=== PATIENT | female | born 1965 | race Caucasian/White ===

== ENCOUNTER 2017-12-15 18:15 | Inpatient (IN) | payer OTHER ==
[~2017-12-15] VITALS: Ht 165.1 cm; Wt 68.5 kg
[~2017-12-15 18:15] MED LIST: CEPHALEXIN500 M3 PO; VALACYCLOVIR1000 MG PO
[2017-12-15 19:53] LABS: ABSOLUTE BASOPHIL COUNT 0 /CUMM (0.0-0.2); ABSOLUTE EOSINOPHIL COUNT 0.1 /CUMM (0.0-0.7); ABSOLUTE GRANULOCYTE CT 3.7 /CUMM (1.4-6.5); ABSOLUTE LYMPH COUNT 1.7 /CUMM (1.2-3.4); ABSOLUTE MONOCYTE COUNT 0.6 /CUMM (0.10-0.60); BASOPHIL % 0.4 % (0.0-2.0); EOSINOPHIL % 2.1 % (0-5); HEMATOCRIT 38.6 % (37-47); MEAN CORPUSCULAR HGB 31.6 PG (27.0-31.0); MEAN CORPUSCULAR VOLUME 93.2 FL (81.0-99.0); MEAN PLATELET VOLUME 7.6 FL (7.4-10.4); PLATELET COUNT 353 /CUMM (130-400); RBC DISTRIBUTION WIDTH 13.2 % (11.5-14.5); RED BLOOD CELL CT 4.14 /CUMM (4.20-5.40); WHITE BLOOD CELL COUNT 6.1 /CUMM (4.8-10.8)
--- NOTE | 2017-12-15 20:03 | History & Physical ---
Wilder Baxter 12/15/172002: General Information and HPI MD Statement: I have seen and personally examined HALLIE JARRELL and documented this H&P. The patient is a 51 year old F who presented with a patient stated chief complaint of [shingles]. Source of Information: patient Exam Limitations: no limitations History of Present Illness: 51-year-old female with no prior medical history previously seen the day prior to admission for a new shingles outbreak returns with worsening symptoms. The patient first noticed a tingling above her left eyebrow just over 1 week ago on Friday, and then on Friday evening she noticed spots above her left eye. The next day, be seen at an urgent care clinic the , she went to an urgent care clinic and was given Valtrex, with a referral to Dr. Mendoza her new food expeditor who reportedly told her eye was okay. She went again to the urgent care clinic on Friday the with complaints of a swollen eye and was given cephalexin for cellulitis of the forehead. She came to the [place] emergency department on Friday the with worsening symptoms and was evaluated and sent home with instructions to return if symptoms worsen. Today, the patient reports that her lesions have increased in number and distribution, with increased swelling and redness beneath the right eye as well. She denies pain to her left eye, visual changes, fever, chills, lightheadedness or dizziness, nausea/vomiting, chest pain or shortness of breath. The patient has no prior history of shingles, has never received a shingles vaccine, assume she had chickenpox as a child, does have contacts with known history of shingles, but nobody with an active outbreak she knows about. The patient does not have a primary care provider, and takes an assortment of supplements for health maintenance. Allergies/Medications Allergies: Coded Allergies: Iodine and Iodide Containing Produc (Intermediate, RASH 12/15/17) shellfish derived (Intermediate, RASH 12/15/17) Home Med list Cephalexin 500 MG CAPSULE 1 TAB PO Q8H INFECTION (Reported) Valacyclovir HCl (Valacyclovir) 1,000 MG TABLET 1 TAB PO TID SHINGLES ( Reported) Compliance With Home Meds: GOOD Past History Travel History Traveled to [place] past 21 day No Medical History Neurological: SHINGLES EENT: NONE Cardiovascular: NONE Respiratory: NONE Gastrointestinal: NONE Hepatic: NONE Renal: NONE Musculoskeletal: NONE Psychiatric: NONE Endocrine: NONE Cancer(s): cervical cancer Surgical History Surgical History: none Past Family/Social History Psychosocial History ETOH Use: occasional use Illicit Drug Use: marijuana Review of Systems Review of Systems Constitutional: Denies: chills, diaphoresis, fever, weakness, unexplained weight loss. EENTM: Denies: blurred vision, double vision, eye pain, eye drainage, eye tearing, ear discharge, ear pain, hearing changes, nasal congestion, nasal pain. Cardiovascular: Denies: see HPI, palpitations, peripheral edema. Respiratory: Denies: cough, short of breath, wheezing. GI: Denies: abdominal pain, diarrhea, nausea, vomiting. Genitourinary: Denies: frequency, hematuria, hesitation, pain, urgency. Exam & Diagnostic Data Last 24 Hrs of Vital Signs/I&O Vital Signs Date Time Temp Pulse Resp B/P B/P Pulse O2 O2 Flow FiO2 Mean Ox Delivery Rate 12/16 0225 80 158/98 12/15 2259 98.1 85 16 188/98 100 Room Air 12/15 2120 98.3 80 18 170/80 99 Room Air 12/15 1838 98.1 84 16 163/90 98 Room Air Room Air Intake & Output 12/16 0800 12/16 0000 12/15 1600 Intake Total 120 Output Total Balance 120 Intake, Oral 120 Patient 68.492 kg Weight Weight Reported by Patient Measurement Method Physical Exam General Appearance Alert, Oriented X3, Cooperative, No Acute Distress Skin Red lesions on the patient's left brow, Mild swelling inferior to Right eye HEENT Atraumatic, Mucous Membr. moist/pink Cardiovascular Regular Rate, Normal S1, Normal S2 Lungs Clear to Auscultation, Normal Air Movement Abdomen Normal Bowel Sounds, Soft, No Tenderness Extremities No Clubbing, No Cyanosis, No Edema Last 24 Hrs of Labs/David: Laboratory Tests 12/15/172222: Lactic Acid Cancelled 12/15/171939: Anion Gap 13, Estimated GFR > 60, BUN/Creatinine Ratio 20.0, Glucose 96, Lactic Acid 0.9, Calcium 9.5, Total Bilirubin 0.4, AST 22, ALT 27, Alkaline Phosphatase 56, Total Protein 9.7 H, Albumin 4.8, Globulin 4.9 H, Albumin/Globulin Ratio 1.0 L, CBC w Diff NO MAN DIFF REQ, RBC 4.14 L, MCV 93.2, MCH 31.6 H, MCHC 34.0, RDW 13.2, MPV 7.6, Gran % 61.0, Lymphocytes % 27.5, Monocytes % 9.0, Eosinophils % 2.1, Basophils % 0.4, Absolute Granulocytes 3.7, Absolute Lymphocytes 1.7, Absolute Monocytes 0.6, Absolute Eosinophils 0.1, Absolute Basophils 0 Microbiology 12/15 1954 BLOOD: Blood Culture - RECD 12/15 1934 BLOOD: Blood Culture - RECD Assessment/Plan Assessment: 51-year-old female with no past medical history presents with outbreak of shingles on the left forehead and brow and cellulitis surrounding the right eye. Problems: 1. Herpes zoster 2. Facial cellulitis Plan: Full code As Ranked By This Provider Problem List: 1. Herpes zoster 2. Cellulitis Core Measures/Misc (12/08) Acute Coronary Syndrome ACS Diagnosis: No Congestive Heart Failure Congestive Heart Failure Diagnosis No Cerebrovascular Accident CVA/TIA Diagnosis: No VTE (View Protocol) VTE Risk Factors Age>40 No Mechanical VTE Prophylaxis d/t N/A MechProphylax Ordered No VTE Pharm Prophylaxis d/t NA PharmProphylax ordered Sepsis (View protocol) Sepsis Present: No If YES complete Sepsis Event Note If YES complete Sepsis Event Note Darlin Hutchins MD 12/15/172040: Core Measures/Misc (12/08) Sepsis (View protocol) If YES complete Sepsis Event Note If YES complete Sepsis Event Note Resident Review Statement Resident Statement: examined this patient, discussed with corporate legal intern, agreed with corporate legal intern, reviewed EMR data (avail), amended to note Other Findings: Patient is a 51-year-old female with past medical history of cervical cancer, recently diagnosed with herpes zoster and started on a course of Valtrex, presented to the ED one day prior for evaluation of left eye pain and swelling now presents with chief complaint of facial swelling and rash. Patient reports that she started noticing a rash on Friday (one week prior) which started to itch on Friday in the evening. Patient went to [place] walk-in clinic on 12/11 and was diagnosed with shingles and started on Valtrex. She was told to follow up with an food expeditor. She was evaluated by on 11/11 and had a fluoroscein slit lamp examination which was negative for involvement of the eye. Patient on 11/12 returned today walk-in clinic due to eye swelling and was diagnosed with facial cellulitis and started on cephalexin 500 mg every 8 hours which she took her first dose in the afternoon on 11/12. Patient presented to the [place] ED one day prior due to more swelling and had reevaluation of her eyes with the slit lamp which was negative. Patient was sent home and instructed to continue taking Valtrex and cephalexin. Patient is returning today due to spread of the rash from the left side to the right side along with increased erythema and periorbital swelling. Patient denies any pain , pruritus, fever, chills, nausea/vomiting. Denies any eye tearing, discharge, visual changes, headaches, confusion, neck pain. Denies chest pain, palpitations, shortness of breath, dysuria/hematuria, constipation/diarrhea. Past medical history: As above Past surgical history: Hysterectomy Social history: Occasional alcohol use and marijuana, denies any recent sick contacts Medications: CoQ10, fish oil, apple cider vinegar, cinnamon, tart suarez juice, turmeric with cumin, magnesium powder Allergies: Iodine contrast, shellfish On admission: Vitals: MAXIMUM TEMPERATURE 98.1, heart rate 84, respiration rate 16, blood pressure 163/90, saturating at 98% on room air Labs: CBC and CMP within normal limits Imaging:none Patient in the ED received IV acyclovir 700 mg every 8 hours and cefazolin 1 g every 8 hours. Patient is a 51-year-old female with past medical history significant for recent diagnosis of shingles presenting with worsening of her shingles concerning for disseminated disease. Patient is otherwise stable with no focal neurological findings and is immunocompetent. Patient in the ED was started on IV acyclovir and IV cefazolin first secondary bacterial facial cellulitis. Problems: 1. Shingles 2. Secondary facial cellulitis 3. Uncontrolled hypertension Plan: Admit to [facility] Contact and airborne precautions Continue IV acyclovir 700 mg every 8 hours Continue IV cefazolin 1 g every 8 hours Continue to monitor, if there is any involvement of the nose or eyes please contact ophthalmology immediately for reevaluation If patient does not improve consider ID consult in the a.m. Continue to monitor vitals Will hold home medications at this time- patient reports that she has stopped taking these supplements since starting the antiviral and antibiotic therapy. Patient's blood pressure on admission remained elevated, likely due to anxiety however we will treat with a one-time dose of amlodipine. Continue to monitor and adjust as needed. DVT prophylaxis: Alps, heparin subcutaneous Code: Full code Diet: Heart healthy Demetrio HENNING,Terence 12/16/17 0415: Core Measures/Misc (12/08) Sepsis (View protocol) If YES complete Sepsis Event Note If YES complete Sepsis Event Note Attending MD Review Statement Attending Statement Attending MD Statement: examined this patient, discuss w/resident/PA/MODEL MAKER SCALE, agreed w/resident/PA/MODEL MAKER SCALE Attending Assessment/Plan: Patient is seen and examined independently by me. Care plan discussed with medical videographer and/or resident. I agree with the physical exam findings and plan of care as outlined above with the following changes and additions. 51 yo F with history of cervical cancer s/p hysterectomy, presented with left forehead vesicular rash with surrounding erythema, edema with periorbital involvement. Patient noticed vesicular rash on 12/10. She went to [facility] walk -in on12/11, diagnosed with herpes zoster and started on valacyclovir 1 g TID. She went to see Opthal (Dr. Castrejon) on 12/12 had fluorescein slit lamp exam with no eye involvement. She has increased left facial swelling on 12/13, went to walk -in again and started on Keflex 500 mg TID. She came to ED with increasing facial edema on 12/14 and advise to continue current treatment and to return when edema spread across to the right face. Today, she has increasing edema with spreading to right periorbital area. She denies fever, chills or pain from lesions. In the ED, she is afebrile. WBC 6.1 She is started on acyclovir 700 mg IV in the ED. She is admitted as inpatient to [facility] for herpes zoster and facial cellulitis. Check blood cultures. Start acyclovir IV and cefazolin IV. Consider Ophthalmology consult if worsen. Signed: Terence Atkinson MD FACP
--- NOTE | 2017-12-15 21:20 | ED GENERAL ADULT ---
History of Present Illness General Chief Complaint: General Adult Stated Complaint: SHINGLES Source: patient Exam Limitations: no limitations Vital Signs & Intake/Output Vital Signs & Intake/Output Vital Signs Date Time Temp Pulse Resp B/P B/P Pulse O2 O2 Flow FiO2 Mean Ox Delivery Rate 12/16 0225 80 158/98 12/15 2259 98.1 85 16 188/98 100 Room Air 12/15 2120 98.3 80 18 170/80 99 Room Air 12/15 1838 98.1 84 16 163/90 98 Room Air Room Air ED Intake and Output 12/16 0000 12/15 1200 Intake Total 0 Output Total Balance 0 Intake, Oral 0 Patient 151 lb Weight Weight Reported by Patient Measurement Method Allergies Coded Allergies: Iodine and Iodide Containing Produc (Intermediate, RASH 12/15/17) shellfish derived (Intermediate, RASH 12/15/17) Reconcile Medications Cephalexin 500 MG CAPSULE 1 TAB PO Q8H INFECTION (Reported) Valacyclovir HCl (Valacyclovir) 1,000 MG TABLET 1 TAB PO TID SHINGLES ( Reported) Triage Note: SHINGLES AND CELLULITIS TO FACE. WORSE FROM YESTERDAY Triage Nurses Notes Reviewed? yes HPI: 51-year-old woman recently diagnosed with herpes zoster and facial cellulitis treated with Valtrex/Keflex seen in the ED yesterday for evaluation of facial pain and swelling. She was subsequently discharged home with instruction to follow up with her primary care provider or to return should her swelling spread across her face or worsen. Patient's rash now involves the right side of her face which worried the patient for which she came to the [place] ED. Presently she feels unchanged from yesterday and denies any fever or chills. Additionally she denies any blurred vision or eye pain. (Terence Valdez MD) Past History Travel History Traveled to [place] past 21 day No Medical History Any Pertinent Medical History? see below for history Neurological: SHINGLES EENT: NONE Cardiovascular: NONE Respiratory: NONE Gastrointestinal: NONE Hepatic: NONE Renal: NONE Musculoskeletal: NONE Psychiatric: NONE Endocrine: NONE Cancer(s): cervical cancer Surgical History Surgical History: none Psychosocial History What is your primary language Frisian Tobacco Use: Quit >30 days ago ETOH Use: occasional use Illicit Drug Use: marijuana Family History Hx Contributory? No (Terence Valdez MD) Review of Systems Review of Systems Constitutional: Reports: see HPI. (Terence Valdez MD) Physical Exam Physical Exam General Appearance: well developed/nourished, no apparent distress, alert, awake , comfortable Comments: General - well developed, well nourished middle aged woman in no acute distress HEENT -diffuse erythematous rash on the left face in the dermatome of the V1 V2 cranial nerve distribution with vesicles and surrounding swelling without any obvious drainage without eye or nasal involvement but now involving the right lower eye lid, fluoriscene dye exam of eye demonstrates no dendrites, pupils equal round reactive to light and accommodation, extraocular muscles intact Neck- Supple, no JVD/HJR, no bruits, trachea midline, thyroid normal Cardio - S1, S2 w/o murmurs/gallops/rubs; regular rate and rhythm Resp - Clear to auscultation bilaterally GI - Soft, nontender, nondistended, bowel sounds present Neuro - Awake and alert, CN II - XII grossly intact Extremities - No edema, pulses intact Core Measures ACS in differential dx? No CVA/TIA Diagnosis: No Sepsis Present: No Sepsis Focused Exam Completed? No (Terence Valdez MD) Progress Differential Diagnoses I considered the following diagnoses in my evaluation of the patient: Herpes zoster, cellulitis, disseminated herpes zoster, zoster ophthalmicus Plan of Care: Orders Procedure Date/time Status Heart Healthy Diet 12/16 B Active CBC WITHOUT DIFFERENTIAL 12/16 06 Active BASIC ELECTROLYTES PLUS BUN&CR 12/16 06 Active Saline Lock 12/16 0011 Active Pathway - chart 12/16 0011 Active House Staff 12/16 0011 Active Code Status 12/16 0011 Active VTE Mechanical Prophylaxis 12/16 UNK Active Vital Signs 12/16 UNK Complete Intake & Output 12/16 UNK Active Activity/Ambulation 12/16 UNK Active Weight 12/15 2233 Complete Vital Signs 12/15 2233 Active Teach/Educate 12/15 2233 Active Pain Treatment and Response 12/15 2233 Active Nutritional Intake, Monitor 12/15 2233 Active Isolation 12/15 2233 Active Intake & Output 12/15 2233 Active Patient Care Conference 12/15 2233 Active Activity/Ambulation 12/15 2233 Complete Admit to inpatient 12/15 1926 Active Isolation 12/15 1926 Complete Isolation 12/15 1926 Active Patient Data 12/16 1923 Active ED Holding Orders 12/15 1922 Active Patient Data 12/15 1922 Active Vital Signs 12/15 1922 Active BLOOD CULTURE 12/15 1922 Active LACTIC ACID 12/15 1922 Complete COMPREHENSIVE METABOLIC PANEL 12/15 1922 Complete CBC WITHOUT DIFFERENTIAL 12/15 1922 Complete Code Status 12/15 1922 Complete Intake & Output 12/15 185 Complete Current Medications Sig/Jeremie Start time Last Medication Dose Stop Time Status Admin Heparin Sodium 5,000 UNIT Q8 12/16 0600 AC (Porcine) Acyclovir 700 MG Q8H 12/16 0500 AC (Zovirax) Dextrose/Water 250 ML (D5W) Acetaminophen 650 MG Q6P PRN 12/16 0015 AC (Tylenol) Cefazolin Sodium 1,000 MG IQ8 12/16 0000 AC 12/16 (Kefzol-Ancef Inj) 0021 Laboratory Tests 12/15/172222: Lactic Acid Cancelled 12/15/171939: Anion Gap 13, Estimated GFR > 60, BUN/Creatinine Ratio 20.0, Glucose 96, Lactic Acid 0.9, Calcium 9.5, Total Bilirubin 0.4, AST 22, ALT 27, Alkaline Phosphatase 56, Total Protein 9.7 H, Albumin 4.8, Globulin 4.9 H, Albumin/Globulin Ratio 1.0 L, CBC w Diff NO MAN DIFF REQ, RBC 4.14 L, MCV 93.2, MCH 31.6 H, MCHC 34.0, RDW 13.2, MPV 7.6, Gran % 61.0, Lymphocytes % 27.5, Monocytes % 9.0, Eosinophils % 2.1, Basophils % 0.4, Absolute Granulocytes 3.7, Absolute Lymphocytes 1.7, Absolute Monocytes 0.6, Absolute Eosinophils 0.1, Absolute Basophils 0 Microbiology 12/15 1954 BLOOD: Blood Culture - RECD 12/15 1934 BLOOD: Blood Culture - RECD Initial ED EKG: none Comments: Patient with herpes zoster and cellulitis involving the left face now involving the right eye suggesting disseminated herpes zoster and impending zoster ophthalmicus. Currently she has no blurred vision or eye pain. Vital signs today remain within normal limits. Repeat labs today remain within normal limits. Given patient's extension of her rash across her face is suggest that multiple dermatomes are involved patient should be treated with intravenous antivirals/antibiotics. (José Miguel HENNING,Terence) Departure Departure Disposition: STILL A PATIENT Condition: Stable Clinical Impression Primary Impression: Herpes zoster Referrals: Patient Has No Primary Care Dr (PCP/Family) Departure Forms: Customer Survey General Discharge Information (José Miguel HENNING,Terence) PA/ASSISTANT MEN'S SOCCER COACH Co-Sign Statement Statement: ED Attending supervision documentation- x I saw and evaluated the patient. I have also reviewed all the pertinent lab results and diagnostic results. I agree with the findings and the plan of care as documented in the PA's/ASSISTANT MEN'S SOCCER COACH's documentation. Patient was seen and examined yesterday by myself and Dr. Valdez, she presents today with progression of symptoms that have crossed dermatomes and have crossed TSI the face. Failed outpatient antibiotics and antivirals. Admit patient for further treatment. [] I have reviewed the ED Record and agree with the PA's/ASSISTANT MEN'S SOCCER COACH's documentation. [] Additions or exceptions (if any) to the PAs/ASSISTANT MEN'S SOCCER COACH's note and plan are summarized below: [] (Seamus HENNING,Saman) Critical Care Note Critical Care Note Critical Care Time: non-applicable (José Miguel HENNING,Terence)
[2017-12-15 22:59] VITALS: BP 188/98
[2017-12-16 02:00] VITALS: BP 158/98
[2017-12-16 04:00] VITALS: BP 148/94
[2017-12-16 06:00] VITALS: BP 148/90
[2017-12-16 07:10] VITALS: BP 144/88
--- NOTE | 2017-12-16 07:47 | History & Physical ---
General Information and HPI Source of Information: patient Exam Limitations: no limitations Allergies/Medications Allergies: Coded Allergies: Iodine and Iodide Containing Produc (Intermediate, RASH 12/15/17) shellfish derived (Intermediate, RASH 12/15/17) Home Med list Cephalexin 500 MG CAPSULE 1 TAB PO Q8H INFECTION (Reported) Valacyclovir HCl (Valacyclovir) 1,000 MG TABLET 1 TAB PO TID SHINGLES ( Reported) Compliance With Home Meds: GOOD Past History Travel History Traveled to [place] past 21 day No Medical History Blood Transfusion Hx: No Neurological: SHINGLES EENT: NONE Cardiovascular: NONE Respiratory: NONE Gastrointestinal: NONE Hepatic: NONE Renal: NONE Musculoskeletal: NONE Psychiatric: NONE Endocrine: NONE Cancer(s): cervical cancer APPLICATION SUPPORT ANALYST/Reproductive: HYSTERECTOMY Isolation History: Airborne Surgical History Surgical History: none Past Family/Social History Psychosocial History Where do you live? Home Services at Home: None Smoking Status: Former Smoker ETOH Use: occasional use Illicit Drug Use: marijuana Core Measures/Misc (12/08) Cerebrovascular Accident CVA/TIA Diagnosis: No VTE (View Protocol) VTE Risk Factors Age>40 Sepsis (View protocol) Sepsis Present: No If YES complete Sepsis Event Note If YES complete Sepsis Event Note
--- NOTE | 2017-12-16 07:48 | PN- Housestaff ---
Ophelia Montano 12/16/17 0748: Subjective Follow-up For: Herpes zoster ophthalmicus Complaints: no complaints Subjective: Patient seen lying in bed. She is very anxious and complains of pain in the lower end of the sternum and the epigastric region. She does not complain of her left eye being photosensitive. Does not complain of itching the rash. Review of Systems Constitutional: Reports: see HPI. Objective Last 24 Hrs of Vital Signs/I&O Vital Signs Date Time Temp Pulse Resp B/P B/P Pulse O2 O2 Flow FiO2 Mean Ox Delivery Rate 12/16 1422 97.5 85 18 139/80 100 Room Air 12/16 0710 72 144/88 97 Room Air 12/16 0600 97.6 78 18 148/90 97 Room Air 12/16 0400 80 148/94 12/16 0225 80 158/98 12/16 0200 80 158/98 12/15 2259 98.1 85 16 188/98 100 Room Air 12/15 2120 98.3 80 18 170/80 99 Room Air 12/15 1838 98.1 84 16 163/90 98 Room Air Room Air Intake & Output 12/16 1600 12/16 0800 12/16 0000 Intake Total 650 390 120 Output Total 450 Balance 200 390 120 Intake, IV 270 Intake, Oral 650 120 120 Output, Urine 450 Patient 151 lb Weight Weight Reported by Patient Measurement Method Physical Exam General Appearance: Alert, Oriented X3, Cooperative, Mild Distress Skin: vesicular rash in on left ana cristina-orbital region, swelling around left eye, left eye tearing but no redness Skin Temp/Moisture Exam: Cool/Dry Sepsis Skin Exam (color): Normal for Ethnicity HEENT: Atraumatic, PERRLA, EOMI, Mucous Membr. moist/pink Neck: Supple, No LAD Cardiovascular: Regular Rate, Normal S1, Normal S2, No Murmurs Lungs: Clear to Auscultation, Normal Air Movement Abdomen: Normal Bowel Sounds, Soft, No Tenderness, No Hepatospenomegaly, No Masses Neurological: Normal Speech, Strength at 5/5 X4 Ext, Normal Tone, Sensation Intact, Cranial Nerves 3-12 NL, Reflexes 2+ Extremities: No Clubbing, No Cyanosis, No Edema, Normal Pulses, No Tenderness/ Swelling Vascular: Normal Pulses, Pulses Symmetrical Current Medications: Current Medications Sig/Jeremie Start time Last Medication Dose Route Stop Time Status Admin Acetaminophen 650 MG Q6P PRN 12/16 0015 DCD PO Acyclovir 700 MG Q8H 12/16 0500 DCD 12/16 Dextrose/Water 250 ML IV 1321 Acyclovir 700 MG Q8H 12/15 1930 DC 12/15 Dextrose/Water 250 ML IV 205 Amlodipine Besylate 5 MG ONCE ONE 12/15 2345 DC 12/16 PO 12/15 2346 0225 Cefazolin Sodium 1,000 MG IQ8 12/16 0000 DCD 12/16 IV 0759 Heparin Sodium 5,000 UNIT Q8 12/16 0600 DCD 12/16 (Porcine) SC 1321 Last 24 Hrs of Lab/David Results Last 24 Hrs of Labs/Mics: Laboratory Tests 12/16/17 0645: Anion Gap 12, Estimated GFR > 60, BUN/Creatinine Ratio 30.0 H, Troponin I < 0.01, CBC w Diff NO MAN DIFF REQ, RBC 4.01 L, MCV 93.2, MCH 31.8 H, MCHC 34.1, RDW 13.0, MPV 8.0, Gran % 58.6, Lymphocytes % 28.5, Monocytes % 9.7 H, Eosinophils % 2.8, Basophils % 0.4, Absolute Granulocytes 3.2, Absolute Lymphocytes 1.6, Absolute Monocytes 0.5, Absolute Eosinophils 0.2, Absolute Basophils 0 12/15/172222: Lactic Acid Cancelled 12/15/171939: Anion Gap 13, Estimated GFR > 60, BUN/Creatinine Ratio 20.0, Glucose 96, Lactic Acid 0.9, Calcium 9.5, Total Bilirubin 0.4, AST 22, ALT 27, Alkaline Phosphatase 56, Total Protein 9.7 H, Albumin 4.8, Globulin 4.9 H, Albumin/Globulin Ratio 1.0 L, CBC w Diff NO MAN DIFF REQ, RBC 4.14 L, MCV 93.2, MCH 31.6 H, MCHC 34.0, RDW 13.2, MPV 7.6, Gran % 61.0, Lymphocytes % 27.5, Monocytes % 9.0, Eosinophils % 2.1, Basophils % 0.4, Absolute Granulocytes 3.7, Absolute Lymphocytes 1.7, Absolute Monocytes 0.6, Absolute Eosinophils 0.1, Absolute Basophils 0 Microbiology 12/15 1954 BLOOD: Blood Culture - RES 12/15 1934 BLOOD: Blood Culture - RES Assessment/Plan Assessment: 51-year-old female with no significant past medical history, presented to the emergency department with a chief complaint of a vesicular rash in the left periorbital area. The rash started with tingly sensation in the left periorbital area, 1 week back. She went to an urgent care who gave her a prescription of Valtrex. She saw an derrick barge operator who said that her eye looked fine. She again went to urgent care the next day and was given cephalexin for cellulitis of the face. One day after that she presented to the [facility] emergency department for worsening of her rash. 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 establish care with primary care physician and follow-up within 1 week after discharge. Problem List: 1. Cellulitis 2. Herpes zoster Pain Ratin Pain Location: None Pain Goal: Remain pain free Pain Plan: Follow pain pathway Tomorrow's Labs & Rationales: Not required Ora Garcia 12/16/17 1049: Attending MD Review Statement Attending Statement Attending MD Statement: examined this patient, discuss w/resident/PA/INDUSTRIAL SERVICES WORKER, agreed w/resident/PA/INDUSTRIAL SERVICES WORKER, discussed with family, reviewed EMR data (avail), discussed with nursing, discussed with case mgmt, reviewed images, amended to note Attending Assessment/Plan: 51 yo F with history of cervical cancer s/p hysterectomy, presented with left forehead vesicular rash with surrounding erythema, edema with periorbital involvement. No new complaints. Area of redness with small pustules and edema noted on forehead and upper eyelid. She is admitted as inpatient to [facility] for herpes zoster and facial cellulitis. Follow blood cultures. C/w acyclovir IV and cefazolin IV. Obtain ID consult. Consider Ophthalmology consult if worsen. GI/DVT prophyalxis Referral to PCP at discharge
[2017-12-16 08:29] LABS: ABSOLUTE BASOPHIL COUNT 0 /CUMM (0.0-0.2); ABSOLUTE EOSINOPHIL COUNT 0.2 /CUMM (0.0-0.7); ABSOLUTE GRANULOCYTE CT 3.2 /CUMM (1.4-6.5); ABSOLUTE LYMPH COUNT 1.6 /CUMM (1.2-3.4); ABSOLUTE MONOCYTE COUNT 0.5 /CUMM (0.10-0.60); BASOPHIL % 0.4 % (0.0-2.0); EOSINOPHIL % 2.8 % (0-5); GRANULOCYTE % 58.6 % (42.2-75.2); HEMATOCRIT 37.4 % (37-47); MEAN CORPUSCULAR HGB 31.8 PG (27.0-31.0); MEAN CORPUSCULAR HGB CONC 34.1 G/DL (33.0-37.0); MEAN CORPUSCULAR VOLUME 93.2 FL (81.0-99.0); PLATELET COUNT 301 /CUMM (130-400); RED BLOOD CELL CT 4.01 /CUMM (4.20-5.40); WHITE BLOOD CELL COUNT 5.4 /CUMM (4.8-10.8)
--- NOTE | 2017-12-16 14:08 | Cons- Infect Disease ---
General Information and HPI Consulting Request Date of Consult: 12/16/17 Requested By: Ora Garcia MD Reason for Consult: Herpes zoster ophthalmicus Source of Information: patient History of Present Illness: This is a 51-year-old woman with no past medical history begun on Valtrex 4 days prior to admission after developing vesicles in the left periorbital area 3 days after developing a tingling sensation over her left forehead, with the addition of Keflex 2 days prior to admission for what was felt to be a cellulitis, admitted on December 15 with increasing swelling in the left periorbital area and, to a lesser extent, the right periorbital area, with no eye pain, fevers or chills. On admission she was afebrile. Laboratory data revealed a white blood cell of 6000, BUN/creatinine 12 and 0.6, with normal liver enzymes. She was begun on IV Acyclovir and Cefazolin. She has remained afebrile overnight and notes improvement in her swelling today. Allergies/Medications Allergies: Coded Allergies: Iodine and Iodide Containing Produc (Intermediate, RASH 12/15/17) shellfish derived (Intermediate, RASH 12/15/17) Home Med List: Cephalexin 500 MG CAPSULE 1 TAB PO Q8H INFECTION (Reported) Valacyclovir HCl (Valacyclovir) 1,000 MG TABLET 1 TAB PO TID SHINGLES ( Reported) Past History Travel History Traveled to [place] past 21 day No Medical History Blood Transfusion Hx: No EENT: NONE Cardiovascular: NONE Respiratory: NONE Gastrointestinal: NONE Hepatic: NONE Renal: NONE Musculoskeletal: NONE Psychiatric: NONE Endocrine: NONE Cancer(s): cervical cancer ADMINISTRATIVE STAFF SUPERVISOR/Reproductive: HYSTERECTOMY Surgical History Surgical History: none Psychosocial History Where Do You Live? Home Services at Home: None Smoking Status: Former Smoker ETOH Use: occasional use Illicit Drug Use: marijuana Review of Systems Review of Systems All Other Systems: Reviewed and Negative Exam & Diagnostic Data Last 24 Hrs of Vital Signs/I&O Vital Signs Date Time Temp Pulse Resp B/P B/P Pulse O2 O2 Flow FiO2 Mean Ox Delivery Rate 12/16 0710 72 144/88 97 Room Air 12/16 0600 97.6 78 18 148/90 97 Room Air 12/16 0400 80 148/94 12/16 0225 80 158/98 12/16 0200 80 158/98 12/15 2259 98.1 85 16 188/98 100 Room Air 12/15 2120 98.3 80 18 170/80 99 Room Air 12/15 1838 98.1 84 16 163/90 98 Room Air Room Air Intake & Output 12/16 1600 12/16 0800 12/16 0000 Intake Total 390 120 Output Total Balance 390 120 Intake, IV 270 Intake, Oral 120 120 Patient 151 lb Weight Weight Reported by Patient Measurement Method Physical Exam Other Physical Findings: She is awake and alert, anxious, but in no acute distress. She is afebrile. Skin reveals vesicles in the left supraorbital area, with mild left periorbital swelling, without any erythema or tenderness; mild swelling in the right maxillary area, with no vesicles or significant erythema or tenderness. HEENT exam left periorbital findings as noted above. Neck is supple with no adenopathy. Lungs are clear. Heart regular rhythm with no murmur. Abdomen is soft, nontender with positive bowel sounds. Back no CVA tenderness. Extremities no cyanosis, clubbing or edema. Neuro is without focality. Last 24 Hours of Lab Results: Laboratory Tests 12/16 12/15 0645 2223 Chemistry Sodium (137 - 145 mmol/L) 140 Potassium (3.5 - 5.1 mmol/L) 4.7 Chloride (98 - 107 mmol/L) 103 Carbon Dioxide (22 - 30 mmol/L) 24 Anion Gap (5 - 16) 12 BUN (7 - 17 mg/dL) 12 Creatinine (0.5 - 1.0 mg/dL) 0.4 L Estimated GFR (>60 ml/min) > 60 BUN/Creatinine Ratio (7 - 25 %) 30.0 H Lactic Acid Cancelled Troponin I (< 0.11 ng/ml) < 0.01 Hematology CBC w Diff NO MAN DIFF REQ WBC (4.8 - 10.8 /CUMM) 5.4 RBC (4.20 - 5.40 /CUMM) 4.01 L Hgb (12.0 - 16.0 G/DL) 12.8 Hct (37 - 47 %) 37.4 MCV (81.0 - 99.0 FL) 93.2 MCH (27.0 - 31.0 PG) 31.8 H MCHC (33.0 - 37.0 G/DL) 34.1 RDW (11.5 - 14.5 %) 13.0 Plt Count (130 - 400 /CUMM) 301 MPV (7.4 - 10.4 FL) 8.0 Gran % (42.2 - 75.2 %) 58.6 Lymphocytes % (20.5 - 51.1 %) 28.5 Monocytes % (1.7 - 9.3 %) 9.7 H Eosinophils % (0 - 5 %) 2.8 Basophils % (0.0 - 2.0 %) 0.4 Absolute Granulocytes (1.4 - 6.5 /CUMM) 3.2 Absolute Lymphocytes (1.2 - 3.4 /CUMM) 1.6 Absolute Monocytes (0.10 - 0.60 /CUMM) 0.5 Absolute Eosinophils (0.0 - 0.7 /CUMM) 0.2 Absolute Basophils (0.0 - 0.2 /CUMM) 0 12/15 194 Chemistry Sodium (137 - 145 mmol/L) 139 Potassium (3.5 - 5.1 mmol/L) 4.1 Chloride (98 - 107 mmol/L) 102 Carbon Dioxide (22 - 30 mmol/L) 24 Anion Gap (5 - 16) 13 BUN (7 - 17 mg/dL) 12 Creatinine (0.5 - 1.0 mg/dL) 0.6 Estimated GFR (>60 ml/min) > 60 BUN/Creatinine Ratio (7 - 25 %) 20.0 Glucose (65 - 99 mg/dL) 96 Lactic Acid (0.7 - 2.1 mmol/L) 0.9 Calcium (8.4 - 10.2 mg/dL) 9.5 Total Bilirubin (0.2 - 1.3 mg/dL) 0.4 AST (14 - 36 U/L) 22 ALT (9 - 52 U/L) 27 Alkaline Phosphatase (<127 U/L) 56 Total Protein (6.3 - 8.2 g/dL) 9.7 H Albumin (3.5 - 5.0 g/dL) 4.8 Globulin (1.9 - 4.2 gm/dL) 4.9 H Albumin/Globulin Ratio (1.1 - 2.2 %) 1.0 L Hematology CBC w Diff NO MAN DIFF REQ WBC (4.8 - 10.8 /CUMM) 6.1 RBC (4.20 - 5.40 /CUMM) 4.14 L Hgb (12.0 - 16.0 G/DL) 13.1 Hct (37 - 47 %) 38.6 MCV (81.0 - 99.0 FL) 93.2 MCH (27.0 - 31.0 PG) 31.6 H MCHC (33.0 - 37.0 G/DL) 34.0 RDW (11.5 - 14.5 %) 13.2 Plt Count (130 - 400 /CUMM) 353 MPV (7.4 - 10.4 FL) 7.6 Gran % (42.2 - 75.2 %) 61.0 Lymphocytes % (20.5 - 51.1 %) 27.5 Monocytes % (1.7 - 9.3 %) 9.0 Eosinophils % (0 - 5 %) 2.1 Basophils % (0.0 - 2.0 %) 0.4 Absolute Granulocytes (1.4 - 6.5 /CUMM) 3.7 Absolute Lymphocytes (1.2 - 3.4 /CUMM) 1.7 Absolute Monocytes (0.10 - 0.60 /CUMM) 0.6 Absolute Eosinophils (0.0 - 0.7 /CUMM) 0.1 Absolute Basophils (0.0 - 0.2 /CUMM) 0 Last 24 Hours of David Results: Blood cultures 2 December 15 negative Assessment/Plan Assessment/Plan Impression: This is a 51-year-old woman with no past medical history treated with Valtrex beginning 4 days prior to admission for Herpes zoster ophthalmicus and Keflex 2 days prior to admission for a presumed bacterial superinfection admitted on December 15 with increasing swelling in the left periorbital area and, to a lesser extent, the right periorbital area, with no eye pain, fevers or chills, found to be afebrile with a normal white blood cell count. Her presentation is consistent with Herpes zoster ophthalmicus. The lesions are confined to the ophthalmic division of the left trigeminal nerve and there is no evidence for dissemination. She has remained afebrile with a normal white blood cell count and has no surrounding erythema or tenderness to suggest a cellulitis , which is reportedly quite rare and occurs in approximately 1% of cases. Suggestion: 1. Discontinue Contact and Airborne isolation and maintain on standard precautions 2. Symptomatic treatment for her left periorbital discomfort 3. Discontinue Cefazolin 4. Discontinue Acyclovir 5. Restart Valtrex 1 gram p.o. 3 times a day and continue for 2 more days Consult Acknowledgment - Thank you for your consult request.
--- NOTE | 2017-12-16 14:21 | Patient Discharge Instructions ---
Discharge Instructions General Discharge Information You were seen/treated for: Herpes zoster, facial cellulitis Watch for these problems: Worsening facial rash, changes in vision, pain in the eye, loss of consciousness , fever, chills: If you have any of these please visit your nearest emergency department Special Instructions: Diet Continue normal diet: Yes Activity Full Activity/No Limits: Yes Acute Coronary Syndrome Inclusion Criteria At DC or during hospital stay patient has or had the following: ACS DIAGNOSIS No Discharge Core Measures Meds if any: Prescribed or Continued at Discharge Meds if any: NOT Prescribed or Continued at Discharge Congestive Heart Failure Inclusion Criteria At DC or during hospital stay patient has or had the following: CHF DIAGNOSIS No Discharge Core Measures Meds if any: Prescribed or Continued at Discharge Meds if any: NOT Prescribed or Continued at Discharge Cerebrovascular accident Inclusion Criteria At DC or during hospital stay patient has or had the following: CVA/TIA Diagnosis No Discharge Core Measures Meds if any: Prescribed or Continued at Discharge Meds if any: NOT Prescribed or Continued at Discharge Venous thromboembolism Inclusion Criteria VTE Diagnosis No Discharge Core Measures - Per Current guidelines, there needs to be overlap - treatment for the first 5 days of Warfarin therapy. - If discharged on Warfarin prior to 5 days of - overlap therapy, the patient will need to be - assessed for post discharge needs including - *Post discharge parental anticoagulation - *Warfarin and/or parental anticoagulation education - *Follow up date to check INR post discharge Meds if any: Prescribed or Continued at Discharge Note: Overlap Therapy is Warfarin and Anticoagulant Meds if any: NOT Prescribed or Continued at Discharge
[2017-12-16 14:22] VITALS: BP 139/80
--- NOTE | 2017-12-16 14:54 | Discharge Summary ---
Hospital Course Allergies: Coded Allergies: Iodine and Iodide Containing Produc (Intermediate, RASH 12/15/17) shellfish derived (Intermediate, RASH 12/15/17) Discharge Instructions Medications at Discharge Discharge Medications: Stop taking the following medications: Cephalexin (Cephalexin) 500 MG CAPSULE ORAL Q8H Continue taking these medications: Valacyclovir HCl (Valacyclovir) 1,000 MG TABLET 1 Tablet ORAL THREE TIMES DAILY Qty = 6
== END 2017-12-16 15:49 | DRG 125 ==
LOC: ERH 18:15 → ERHI 19:27 → 2NB 19:27 → ENRESERV 21:00 → ENTRNSPT 21:37 → EDTRNSPTSTS 21:54 → CMPTRNSPT 21:55 → 2NB 22:18 → ENPENDDIS 12-16 14:54 → 2NB 12-16 15:49
PROVIDERS: Internal Medicine Interventional Cardiology; Student in an Organized Health Care Education/Training Program
DX: B02.30 Zoster ocular disease, unspecified (principal); L03.213 Periorbital cellulitis; Z91.041 Radiographic dye allergy status; Z85.41 Personal history of malignant neoplasm of cervix uteri; F12.90 Cannabis use, unspecified, uncomplicated; I10 Essential (primary) hypertension
CPT/HCPCS: 2NBP; 36592; 82436; 87040; 93005; 93010; J0690; J1644; J7060